=== PATIENT | female | born 2000 | race Asian ===

== ENCOUNTER 2022-07-25 10:07 | Day surgery (SDC) | payer BC ==
[2022-07-24 08:03] VITALS: BMI 25.8
[2022-07-25] MEDS ORDERED: Bupivacaine HCl 0.5%/Epinephrine 1:200,000/PF 30 ml Vial ONE (10:52)
[2022-07-25] MEDS ORDERED: CEFAZOLIN 2 GM VIAL ONE (11:28)
[2022-07-25] MEDS ORDERED: Ropivacaine 0.5% HCl/PF (150 MG/30 ML VIAL) ONE (12:00)
[2022-07-25] MEDS ORDERED: Midazolam HCl 2 mg/2 ml Vial ONE (12:01)
[2022-07-25] MEDS ORDERED: Lidocaine 1% PF 5 ML VIAL ONE (12:01)
[2022-07-25] MEDS ORDERED: PROPOFOL 20 ML ONE (12:57)
[2022-07-25] MEDS ORDERED: Fentanyl 100 MCG/2 ML VIAL ONE (12:57)
[2022-07-25] MEDS ORDERED: Ketorolac Tromethamine 30 MG/ML VIAL ONE (13:47)
[2022-07-25] MEDS ORDERED: Dexamethasone 4 mg/ml Vial ONE (13:47)
[2022-07-25] MEDS ORDERED: Ondansetron PF 4 MG/2 ML Vial ONE (13:47)
== END 2022-07-25 15:05 | disposition home or self-care (01) ==
LOC: CSHSDC 10:07
PROVIDERS: ATTEND Orthopaedic Surgery
PROC: 0PSH04Z Reposition Right Radius with Internal Fixation Device, Open Approach (ICD-10-PCS; principal; 2022-07-25)
DX: S52.571A Other intraarticular fracture of lower end of right radius, initial encounter for closed fracture (principal); V00.841A Fall from standing electric scooter, initial encounter
CPT/HCPCS: C1713; J1100; J1885; J2250; J2405; J2704; J2795; J3010